=== PATIENT | female | born 1975 | race Caucasian/White ===

== ENCOUNTER 2017-01-13 13:44 | Emergency (ER) | payer MEDICAID ==
[~2017-01-13] VITALS: Ht 157.5 cm; Wt 65.0 kg
[2017-01-13 13:50] VITALS: BP 120/84
[2017-01-13] MEDS ORDERED: KETOROLAC 30 MG/1 ML ONE ×2 (14:09→14:12)
[2017-01-13] MEDS ORDERED: HYDROmorphone 1 MG/ML, 1ML ONE (14:09)
[2017-01-13] MEDS ORDERED: METHOCARBAMOL 750 MG TABLET ONE (14:09)
[2017-01-13] MEDS ORDERED: ONDANSETRON ODT 4 MG ONE (14:09)
[2017-01-13] MEDS ORDERED: ONDANSETRON ODT 4 MG PO ONE (14:30)
[2017-01-13] MEDS ORDERED: METHOCARBAMOL 750 MG TABLET PO ONE (14:30)
[2017-01-13] MEDS ORDERED: KETOROLAC 30 MG/1 ML IM ONE (14:30)
[2017-01-13] MEDS ORDERED: HYDROmorphone 1 MG/ML, 1ML IM ONE (14:30)
== END 2017-01-13 15:23 | disposition home or self-care (01) ==
LOC: ED 15:08
DX: S39.012A Strain of muscle, fascia and tendon of lower back, initial encounter (principal); M47.896 Other spondylosis, lumbar region; X58.XXXA Exposure to other specified factors, initial encounter; Y93.89 Activity, other specified; Y92.89 Other specified places as the place of occurrence of the external cause; Y99.8 Other external cause status
CPT/HCPCS: 72110; 96372; 99284; J1170; J1885; Q0162